=== PATIENT | female | born 1950 | race Caucasian/White ===

== ENCOUNTER 2021-11-20 23:05 | Inpatient (IN) ==
[2021-11-21] MEDS ORDERED: Melatonin 3 MG TABLET PO PRN (02:15)
[2021-11-21] MEDS ORDERED: Naloxone 0.4 MG/ML INJ IVP PRN (02:15)
[2021-11-21] MEDS ORDERED: Ondansetron 4 MG/2 ML VIAL IVP PRN (02:15)
[2021-11-21] MEDS ORDERED: *HR* OxyCODONE Immed Rel 5 MG TABLET PO PRN (02:15)
[2021-11-21] MEDS ORDERED: Ipratropium/Albuterol Neb 3 ML IH PRN (02:17)
[2021-11-21] MEDS ORDERED: *HR* LORazepam 2 MG/ML VIAL IVP PRN ×3 (02:44)
[2021-11-21] MEDS: Azithromycin 500 MG in 0.9 % Sodium Chloride 250 ML IVPB SCH (02:50)
[2021-11-21] MEDS: *HR* Heparin 5,000 UNIT/ML VIAL SQ SCH ×3 (05:41→21:21)
[2021-11-21 06:42] LABS: Basophils % 0.2 %; Hemoglobin 12.5 g/dL (11.5-15.4); Immature Granulocytes % 0.4 % (0-4); Lymphocytes # 0.3 K/mcL (0.6-4.6); Lymphocytes % 2.4 %; Mean Corpuscular HGB Conc 32.9 g/dL (31.6-35.5); Mean Corpuscular Hemoglobin 33.3 pg (28.0-33.3); Mean Corpuscular Volume 101.3 fL (83.0-100.0); Mean Platelet Volume 10.4 fL (9.4-12.4); Monocytes # 0.2 K/mcL (0.0-1.3); Monocytes % 1.6 %; Neutrophils # 11.7 K/mcL (1.6-8.9); Platelet Count 194 K/mcL (140-400); Red Blood Count 3.75 M/mcL (3.82-4.97); Red Cell Distribution Width 12.1 % (11.5-14.5); Segmented Neutrophils % 95.4 %; White Blood Count 12.3 K/mcL (4.3-11.1)
[2021-11-21 06:55] LABS: Prothrombin Time 11.5 Seconds (9.4-12.1)
[2021-11-21 07:02] LABS: Calcium 8.9 mg/dL (8.6-10.3); Potassium 3.9 mEq/L (3.5-5.1)
[2021-11-21] MEDS: Budesonide/Formoterol 160/4.5 1 PUFF INH IH SCH ×2 (07:50→21:09)
[2021-11-21] MEDS: MethylPREDNISolone 40 MG/ML VIAL IVP SCH ×2 (08:51→15:10)
[2021-11-21] MEDS: Folic Acid 1 MG TABLET PO SCH (08:51)
[2021-11-21] MEDS: Vitamin B Complex/Vit C/Vit E 1 EACH TABLET PO SCH (08:51)
[2021-11-21] MEDS: Thiamine (B-1) 100 MG TABLET PO SCH (08:51)
[2021-11-22] MEDS: MethylPREDNISolone 40 MG/ML VIAL IVP SCH ×3 (01:07→16:20)
[2021-11-22 01:12] LABS: Basophils % 0.1 %; Hematocrit 38.7 % (35.3-44.9); Hemoglobin 12.8 g/dL (11.5-15.4); Immature Granulocytes % 0.6 % (0-4); Lymphocytes # 0.9 K/mcL (0.6-4.6); Lymphocytes % 4.1 %; Mean Corpuscular HGB Conc 33.1 g/dL (31.6-35.5); Mean Corpuscular Hemoglobin 33.2 pg (28.0-33.3); Mean Corpuscular Volume 100.5 fL (83.0-100.0); Mean Platelet Volume 10.4 fL (9.4-12.4); Monocytes % 3.5 %; Neutrophils # 19.5 K/mcL (1.6-8.9); Platelet Count 205 K/mcL (140-400); Red Blood Count 3.85 M/mcL (3.82-4.97); Red Cell Distribution Width 11.9 % (11.5-14.5); Segmented Neutrophils % 91.7 %
[2021-11-22 01:14] LABS: Monocytes # 0.8 K/mcL (0.0-1.3); White Blood Count 21.3 K/mcL (4.3-11.1)
[2021-11-22 01:46] LABS: BUN/Creatinine Ratio 25 (6-26); Blood Urea Nitrogen 17 mg/dL (8-23); Calcium 9.4 mg/dL (8.6-10.3); Carbon Dioxide 24 mEq/L (23-29); Chloride 106 mEq/L (98-107); Glucose 134 mg/dL (70-105); Osmolality,Calculated 286 (280-300); Potassium 4.3 mEq/L (3.5-5.1); Sodium 136 mEq/L (136-145)
[2021-11-22] MEDS: Azithromycin 500 MG in 0.9 % Sodium Chloride 250 ML IVPB SCH (03:31)
[2021-11-22] MEDS: *HR* Heparin 5,000 UNIT/ML VIAL SQ SCH ×3 (04:53→21:38)
[2021-11-22] MEDS: Budesonide/Formoterol 160/4.5 1 PUFF INH IH SCH ×2 (07:38→20:22)
[2021-11-22] MEDS: Vitamin B Complex/Vit C/Vit E 1 EACH TABLET PO SCH (08:48)
[2021-11-22] MEDS: Folic Acid 1 MG TABLET PO SCH (08:48)
[2021-11-22] MEDS: Thiamine (B-1) 100 MG TABLET PO SCH (08:48)
[2021-11-22] MEDS: Acetaminophen 325 MG TABLET PO PRN (21:37)
[2021-11-23] MEDS: MethylPREDNISolone 40 MG/ML VIAL IVP SCH ×2 (00:45→08:00)
[2021-11-23 03:23] LABS: Basophils % 0.1 %; Hematocrit 37.6 % (35.3-44.9); Hemoglobin 12.8 g/dL (11.5-15.4); Immature Granulocytes % 0.7 % (0-4); Lymphocytes # 0.7 K/mcL (0.6-4.6); Mean Corpuscular Hemoglobin 33.8 pg (28.0-33.3); Mean Corpuscular Volume 99.2 fL (83.0-100.0); Mean Platelet Volume 10.7 fL (9.4-12.4); Monocytes # 0.6 K/mcL (0.0-1.3); Monocytes % 3.5 %; Neutrophils # 15.3 K/mcL (1.6-8.9); Platelet Count 211 K/mcL (140-400); Red Blood Count 3.79 M/mcL (3.82-4.97); Red Cell Distribution Width 11.9 % (11.5-14.5); Segmented Neutrophils % 91.7 %; White Blood Count 16.7 K/mcL (4.3-11.1)
[2021-11-23 03:39] LABS: Calcium 9.2 mg/dL (8.6-10.3); Potassium 3.6 mEq/L (3.5-5.1)
[2021-11-23] MEDS: Azithromycin 500 MG in 0.9 % Sodium Chloride 250 ML IVPB SCH (04:00)
[2021-11-23] MEDS: *HR* Heparin 5,000 UNIT/ML VIAL SQ SCH ×3 (05:18→20:57)
[2021-11-23] MEDS: Budesonide/Formoterol 160/4.5 1 PUFF INH IH SCH ×2 (07:23→19:30)
[2021-11-23] MEDS: Vitamin B Complex/Vit C/Vit E 1 EACH TABLET PO SCH (08:01)
[2021-11-23] MEDS: Folic Acid 1 MG TABLET PO SCH (08:01)
[2021-11-23] MEDS: Thiamine (B-1) 100 MG TABLET PO SCH (08:01)
[2021-11-23] MEDS: Acetaminophen 325 MG TABLET PO PRN (08:08)
[2021-11-24 02:52] LABS: Basophils % 0.1 %; Hematocrit 39.2 % (35.3-44.9); Hemoglobin 13.2 g/dL (11.5-15.4); Immature Granulocytes % 0.7 % (0-4); Lymphocytes # 1.8 K/mcL (0.6-4.6); Lymphocytes % 11.9 %; Mean Corpuscular HGB Conc 33.7 g/dL (31.6-35.5); Mean Corpuscular Hemoglobin 33.8 pg (28.0-33.3); Mean Corpuscular Volume 100.5 fL (83.0-100.0); Mean Platelet Volume 10.7 fL (9.4-12.4); Monocytes # 1.4 K/mcL (0.0-1.3); Monocytes % 9.2 %; Neutrophils # 11.5 K/mcL (1.6-8.9); Platelet Count 198 K/mcL (140-400); Red Cell Distribution Width 11.7 % (11.5-14.5); Segmented Neutrophils % 78.1 %; White Blood Count 14.7 K/mcL (4.3-11.1)
[2021-11-24] MEDS: *HR* Heparin 5,000 UNIT/ML VIAL SQ SCH ×3 (05:25→21:02)
[2021-11-24] MEDS: Thiamine (B-1) 100 MG TABLET PO SCH (08:24)
[2021-11-24] MEDS: *HR* HYDROcodone/Acet 5/325 mg TABLET PO PRN (08:24)
[2021-11-24] MEDS: Vitamin B Complex/Vit C/Vit E 1 EACH TABLET PO SCH (08:25)
[2021-11-24] MEDS: Azithromycin 250 MG TABLET PO SCH (08:25)
[2021-11-24] MEDS: Folic Acid 1 MG TABLET PO SCH (08:25)
[2021-11-24] MEDS: MethylPREDNISolone 40 MG/ML VIAL IVP SCH (08:25)
[2021-11-24] MEDS: Budesonide/Formoterol 160/4.5 1 PUFF INH IH SCH ×2 (10:14→22:13)
[2021-11-25] MEDS: *HR* Heparin 5,000 UNIT/ML VIAL SQ SCH ×3 (04:54→21:10)
[2021-11-25] MEDS: Budesonide/Formoterol 160/4.5 1 PUFF INH IH SCH ×2 (07:58→20:29)
[2021-11-25] MEDS: Vitamin B Complex/Vit C/Vit E 1 EACH TABLET PO SCH (08:07)
[2021-11-25] MEDS: Azithromycin 250 MG TABLET PO SCH (08:07)
[2021-11-25] MEDS: MethylPREDNISolone 40 MG/ML VIAL IVP SCH (08:07)
[2021-11-25] MEDS: Thiamine (B-1) 100 MG TABLET PO SCH (08:07)
[2021-11-25] MEDS: Folic Acid 1 MG TABLET PO SCH (08:07)
[2021-11-26] MEDS: *HR* Heparin 5,000 UNIT/ML VIAL SQ SCH ×3 (05:20→21:14)
[2021-11-26] MEDS: Budesonide/Formoterol 160/4.5 1 PUFF INH IH SCH ×2 (07:58→20:21)
[2021-11-26] MEDS: Folic Acid 1 MG TABLET PO SCH (08:11)
[2021-11-26] MEDS: Azithromycin 250 MG TABLET PO SCH (08:11)
[2021-11-26] MEDS: Thiamine (B-1) 100 MG TABLET PO SCH (08:11)
[2021-11-26] MEDS: Vitamin B Complex/Vit C/Vit E 1 EACH TABLET PO SCH (08:11)
[2021-11-26] MEDS: MethylPREDNISolone 40 MG/ML VIAL IVP SCH (08:12)
[2021-11-27 02:39] LABS: Basophils % 0.1 %; Eosinophils % 0.3 %; Hemoglobin 12.5 g/dL (11.5-15.4); Lymphocytes # 2.4 K/mcL (0.6-4.6); Lymphocytes % 18.2 %; Mean Corpuscular HGB Conc 33.8 g/dL (31.6-35.5); Mean Corpuscular Hemoglobin 33.6 pg (28.0-33.3); Mean Corpuscular Volume 99.5 fL (83.0-100.0); Mean Platelet Volume 10.6 fL (9.4-12.4); Monocytes # 1.4 K/mcL (0.0-1.3); Monocytes % 10.1 %; Neutrophils # 9.4 K/mcL (1.6-8.9); Platelet Count 188 K/mcL (140-400); Red Blood Count 3.72 M/mcL (3.82-4.97); Red Cell Distribution Width 11.5 % (11.5-14.5); Segmented Neutrophils % 70.3 %; White Blood Count 13.4 K/mcL (4.3-11.1)
[2021-11-27] MEDS: *HR* Heparin 5,000 UNIT/ML VIAL SQ SCH ×3 (05:03→22:01)
[2021-11-27] MEDS: Budesonide/Formoterol 160/4.5 1 PUFF INH IH SCH ×2 (07:42→19:58)
[2021-11-27] MEDS: Azithromycin 250 MG TABLET PO SCH (09:12)
[2021-11-27] MEDS: Thiamine (B-1) 100 MG TABLET PO SCH (09:12)
[2021-11-27] MEDS: predniSONE 20 MG TABLET PO SCH (09:12)
[2021-11-27] MEDS: Folic Acid 1 MG TABLET PO SCH (09:12)
[2021-11-27] MEDS: Vitamin B Complex/Vit C/Vit E 1 EACH TABLET PO SCH (09:12)
[2021-11-28] MEDS: *HR* HYDROcodone/Acet 5/325 mg TABLET PO PRN ×2 (04:22→16:12)
[2021-11-28] MEDS: *HR* Heparin 5,000 UNIT/ML VIAL SQ SCH ×3 (06:30→20:44)
[2021-11-28] MEDS: Budesonide/Formoterol 160/4.5 1 PUFF INH IH SCH ×2 (07:51→20:13)
[2021-11-28] MEDS: Thiamine (B-1) 100 MG TABLET PO SCH (08:27)
[2021-11-28] MEDS: Folic Acid 1 MG TABLET PO SCH (08:28)
[2021-11-28] MEDS: Vitamin B Complex/Vit C/Vit E 1 EACH TABLET PO SCH (08:28)
[2021-11-28] MEDS: Azithromycin 250 MG TABLET PO SCH (08:28)
[2021-11-28] MEDS: predniSONE 20 MG TABLET PO SCH (08:29)
[2021-11-29] MEDS: *HR* Heparin 5,000 UNIT/ML VIAL SQ SCH (05:59)
[2021-11-29 06:32] LABS: Basophils % 0.1 %; Eosinophils % 0.2 %; Hematocrit 37.5 % (35.3-44.9); Hemoglobin 12.4 g/dL (11.5-15.4); Immature Granulocytes % 0.9 % (0-4); Lymphocytes # 2.9 K/mcL (0.6-4.6); Lymphocytes % 20.5 %; Mean Corpuscular HGB Conc 33.1 g/dL (31.6-35.5); Mean Corpuscular Hemoglobin 33.3 pg (28.0-33.3); Mean Corpuscular Volume 100.8 fL (83.0-100.0); Mean Platelet Volume 10.4 fL (9.4-12.4); Monocytes # 1.6 K/mcL (0.0-1.3); Monocytes % 11.6 %; Neutrophils # 9.4 K/mcL (1.6-8.9); Platelet Count 180 K/mcL (140-400); Red Blood Count 3.72 M/mcL (3.82-4.97); Red Cell Distribution Width 11.8 % (11.5-14.5); Segmented Neutrophils % 66.7 %; White Blood Count 14.1 K/mcL (4.3-11.1)
[2021-11-29 06:52] LABS: Albumin 3.4 g/dL (3.5-5.7); Albumin/Globulin Ratio 1.6 (1.1-2.2); Bilirubin,Total 0.8 mg/dL (0.3-1.0); Calcium 9.2 mg/dL (8.6-10.3); Globulin 2.1 g/dL (2.4-3.5); Total Protein 5.5 g/dL (6.4-8.9)
[2021-11-29] MEDS: Budesonide/Formoterol 160/4.5 1 PUFF INH IH SCH (07:27)
[2021-11-29] MEDS: predniSONE 20 MG TABLET PO SCH (11:06)
[2021-11-29] MEDS: Thiamine (B-1) 100 MG TABLET PO SCH (11:06)
[2021-11-29] MEDS: Azithromycin 250 MG TABLET PO SCH (11:06)
[2021-11-29] MEDS: Vitamin B Complex/Vit C/Vit E 1 EACH TABLET PO SCH (11:07)
[2021-11-29] MEDS: Folic Acid 1 MG TABLET PO SCH (11:07)
[2021-11-29 13:13] VITALS: BP 130/62; PULSE 72; TEMP 98.1; O2SAT 99
== END 2021-11-29 19:00 | disposition home or self-care (01) | DRG 191 ==
LOC: 3NENU → SUATTDRO 11-21 01:15
PROVIDERS: ADMIT Internal Medicine; ATTEND Internal Medicine